=== PATIENT | female | born 2000 ===

== ENCOUNTER 2021-09-20 12:15 | Inpatient (IN) | payer OTHER ==
[~2021-09-20] VITALS: Ht 170.2 cm; Wt 99.8 kg
[2021-09-20] MEDS ORDERED: CELEBREX200MG PO (15:21)
[2021-09-20] MEDS ORDERED: ATACAND HCT 161 EACH PO (15:21)
[2021-09-20] MEDS ORDERED: CLARITIN10 M2 PO (15:22)
[2021-09-20] MEDS ORDERED: PEPCID AC20 MG PO (15:22)
[2021-09-25] MEDS ORDERED: PERCOCET 5-3251 EACH PO (09:06)
== END 2021-09-25 10:44 | disposition home or self-care (01) | DRG 329 ==
LOC: ADM 12:15 → O/R 09-22 05:57 → SURH 09-22 05:57 → CIR.AMB 09-22 07:00 → SURH 09-22 12:15 → EDSTATUS 09-22 12:15 → CIR.AMB 09-22 12:15 → SURH 09-22 13:42
PROVIDERS: Obstetrics & Gynecology Gynecology; ADMIT Surgery; ATTEND Surgery
PROC: 0DNW4ZZ Release Peritoneum, Percutaneous Endoscopic Approach (ICD-10-PCS; 2021-09-22)
PROC: 0UB04ZZ Excision of Right Ovary, Percutaneous Endoscopic Approach (ICD-10-PCS; 2021-09-22)
PROC: 0DJD8ZZ Inspection of Lower Intestinal Tract, Via Natural or Artificial Opening Endoscopic (ICD-10-PCS; 2021-09-22)
PROC: 0UH97HZ Insertion of Contraceptive Device into Uterus, Via Natural or Artificial Opening (ICD-10-PCS; 2021-09-22)
PROC: 0DTN4ZZ Resection of Sigmoid Colon, Percutaneous Endoscopic Approach (ICD-10-PCS; principal; 2021-09-22 07:00)
PROC: 0DBP4ZZ Excision of Rectum, Percutaneous Endoscopic Approach (ICD-10-PCS; 2021-09-22 07:00)
DX: N80.5 Endometriosis of intestine (principal); N73.3 Female acute pelvic peritonitis; D27.0 Benign neoplasm of right ovary; N73.6 Female pelvic peritoneal adhesions (postinfective); I10 Essential (primary) hypertension